=== PATIENT | male | born 1985 | race Caucasian/White ===

== ENCOUNTER 2022-08-28 03:30 | Outpatient (CLI) | payer BC, SELFPAY ==
[2022-08-29 18:55] LABS: Prostate Specific Antigen 0.4 ng/mL (< OR = 4.0)
== END 2022-08-28 03:31 | disposition home or self-care (01) ==
LOC: ANHLAB 08-29 08:38
PROVIDERS: Visit Provider Internal Medicine Hematology & Oncology
DX: Z12.5 Encounter for screening for malignant neoplasm of prostate (principal)
CPT/HCPCS: 36415; 84153; G0103

== ENCOUNTER 2022-09-03 07:28 | Outpatient (CLI) | payer BC, SELFPAY ==
--- NOTE | ~2022-09-03 | CT_ITS ---
Clinical Indication: Shortness of breath CT Scan of the Chest with Contrast: Technique: Contiguous sections were acquired throughout the chest after intravenous administration of 75 cc of Omnipaque 350. Dose reduction technique was used on this scan by utilizing automated exposu re control and iterative reconstruction technique. The dose-length product (DLP) was 245.29 mGy-cm. Findings: There is no evidence of any significant mediastinal, hilar or axillary lymphadenopathy. There is no f illing defect in the pulmonary arterial tree to suggest pulmonary embolus. There is no evidence of ao rtic dissection or aneurysm. There is no evidence of pleural or pericardial effusion. The lungs are clear, aside from calcified right lower lobe granuloma. Images through the upper abdomen reveal no abnormalities. Impression: No significant abnormality identified. Reviewed, dictated and finalized at [facility]. Impression: No significant abnormality identified.
== END 2022-09-03 07:29 | disposition home or self-care (01) ==
PROVIDERS: PCP Physician Assistant; Visit Provider Internal Medicine Hematology & Oncology
DX: R06.02 Shortness of breath (principal)
CPT/HCPCS: 71260; Q9967